=== PATIENT | male | born 1965 | race Caucasian/White ===

== ENCOUNTER 2021-09-24 21:16 | Emergency (ER) | payer MEDICAID ==
[2021-09-24 22:02] LABS: BASOPHIL 0.7 % (0-2); EOSINOPHIL 3.3 % (0-5); HCT 44.5 % (42.0-52.0); HGB 15.3 g/dl (13.2-18.0); LYMPHOCYTE 39.2 % (15-48); MCH 31.7 pg (25.0-31.0); MCHC 34.4 g/dL (32.0-36.0); MCV 92.1 fL (78.0-100.0); MONOCYTE 9.7 % (0-12); MPV 10.7 fL (6.0-9.5); NEUTROPHIL 46.9 % (41-80); NRBC 0; PLT 190 K/uL (150-400); RBC 4.83 M/uL (4.70-6.00); RDW 12.2 % (11.5-14.0); WBC 4.5 K/uL (4.0-10.5)
[2021-09-24 22:10] LABS: INR 0.94 (0.9-1.2); PROTHROMBIN TIME 12.3 SECONDS (11.9-13.9); PTT 31.1 SECONDS (24.9-34.6)
[2021-09-24 22:22] LABS: ALBUMIN 3.7 g/dL (3.4-5.0); BILIRUBIN - TOTAL 0.3 mg/dL (0.2-1.0); CREATININE 0.94 mg/dL (0.67-1.17); TOTAL PROTEIN 6.7 g/dL (6.4-8.2)
[2021-09-24 22:57] LABS: CORONAVIRUS 2019 SARS-COV-2 NEGATIVE (NEGATIVE); INFLUENZA A NAA NEGATIVE (NEGATIVE)
[2021-09-24] MEDS ORDERED: PRINIVIL20 MG PO (23:39)
[2021-09-24] MEDS ORDERED: LOPRESSOR50 MG PO (23:39)
== END 2021-09-25 00:14 | disposition home or self-care (01) ==
LOC: FER 21:16
PROVIDERS: Emergency Medicine
DX: R07.89 Other chest pain (principal); I10 Essential (primary) hypertension; Z20.822 Contact with and (suspected) exposure to COVID-19; Z79.899 Other long term (current) drug therapy
CPT/HCPCS: 36415; 71045; 80053; 84484; 85025; 85610; 85730; 93005; J1885; U0002